=== PATIENT | female | born 1990 | race African-American/Black ===

== ENCOUNTER 2021-12-13 09:36 | Emergency (ER) | payer MEDICAID, OTHER ==
[~2021-12-13] VITALS: Ht 170.2 cm; Wt 137.9 kg
[2021-12-13 09:43] VITALS: BP 140/68
[2021-12-13 10:07] LABS: BILIRUBIN,URINE NEGATIVE (NEG); CLARITY,URINE CLEAR; COLOR,URINE YELLOW; NITRITE,URINE NEGATIVE (NEG); PROTEIN,URINE 30 mg/dL (NEG-TRACE); UROBILINOGEN,URINE 0.2 mg/dL (0.2 mg/dL)
--- NOTE | 2021-12-13 11:00 | PHYS DOC ---
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 She denies abdominal pain otherwise, nausea, vomiting, diarrhea, fever, back pain, blood in her urine, headache or dizziness. She states that she has no concerns for STDs and does not want to be treated today for them. Patient has a history of breast cancer with surgery and former smoker. ([facility] Review of Systems: Review of Systems: Constitutional: Denies fever or chills. [] Eyes: Denies change in visual acuity. [] HENT: Denies nasal congestion or sore throat. [] Respiratory: Denies cough or shortness of breath. [] Cardiovascular: Denies chest pain or edema. [] GI: +Pressure abdominal pain after urination, denies nausea, vomiting, bloody stools or diarrhea. [] : Denies dysuria. + Vaginal discharge [] Musculoskeletal: Denies back pain or joint pain. [] Integument: Denies rash. [] Neurologic: Denies headache, focal weakness or sensory changes. [] Endocrine: Denies polyuria or polydipsia. [] Lymphatic: Denies swollen glands. [] Psychiatric: Denies depression or anxiety. [] ([facility],WALTER M ANGIOGRAPHY TECHNOLOGIST) Heart Score: C/O Chest Pain: No ([facility] ANGIOGRAPHY TECHNOLOGIST) Allergies: Allergies: Allergies Coded Allergies Type Severity Reaction Last Updated Verified No Known Drug Allergies 04/28/14 No ([facility] ANGIOGRAPHY TECHNOLOGIST) Physical Exam: PE: Constitutional: Well developed, well nourished, no acute distress, non-toxic appearance. [] HENT: Normocephalic, atraumatic, bilateral external ears normal, oropharynx moist, no oral exudates, nose normal. [] Eyes: PERRLA, EOMI, conjunctiva normal, no discharge. [] Neck: Normal range of motion, no tenderness, supple, no stridor. [] Cardiovascular:Heart rate regular rhythm, no murmur [] Lungs & Thorax: Bilateral breath sounds clear to auscultation [] Abdomen: Bowel sounds normal, soft, no tenderness, no masses, no pulsatile masses. [] Skin: Warm, dry, no erythema, no rash. [] Back: No tenderness, no CVA tenderness. [] Extremities: No tenderness, no cyanosis, no clubbing, ROM intact, no edema. [] Neurologic: Alert and oriented X 3, normal motor function, normal sensory function, no focal deficits noted. [] Psychologic: Affect normal, judgement normal, mood normal. [] Normal physical exam (WALTER VELAZQUEZ APRN) Current Patient Data: Labs: Laboratory Tests Test 12/13/21 09:55 POC Urine HCG, Qualitative Hcg negative (Negative) Microbiology 12/13/21 Wet Prep - Final, Complete Vital Signs: Vital Signs Date Time Temp Pulse Resp B/P (MAP) Pulse Ox O2 Delivery O2 Flow Rate FiO2 12/13/21 09:43 98.0 106 22 140/68 (92) 98 Room Air 98.0 (WALTER VELAZQUEZ APRN) EKG: EKG: [] (WALTER VELAZQUEZ APRN) Radiology/Procedures: Radiology/Procedures: [] (WALTER VELAZQUEZ APRN) Course & Med Decision Making: Course & Med Decision Making Pertinent Labs and Imaging studies reviewed. (See chart for details) See HPI. Alert and oriented x4. Ambulatory steady gait. Skin pink warm and dry. Afebrile. No CVA tenderness. Abdomen soft and nontender. Wet prep positive for bacterial vaginosis. Chlamydia and gonorrhea sent off and patient is educated that she will be called in 48 hours only if something comes back positive. Patient states that she will wait and see and does not be treated today. Pelvic Exam: Corporate Travel Coordinator present Abdomen: Nontender External Genitalia: Normal Skin Speculum: Normal vaginal mucosa, white cervical discharge Bimanual: No adnexal masses or tenderness, No CMT [] (WALTER VELAZQUEZ APRN) Course & Med Decision Making I have reviewed the PA/[employer]ST[employer]'s note and plan of care. I was available for consultation as needed during the patient's visit in the emergency department. (ZHANNA PINZON MD) Laura Disclaimer: Laura Disclaimer: This electronic medical record was generated, in whole or in part, using a voice recognition dictation system. (WALTER VELAZQUEZ APRN) Departure Departure Impression: Primary Impression: Bacterial vaginosis Additional Impression: Dysuria Disposition: HOME / SELF CARE / HOMELESS Condition: STABLE Referrals: UNKNOWN PCP NAME (PCP) CHELSEA IRWIN MD Patient Instructions: Bacterial Vaginosis, Dysuria Additional Instructions: Follow-up with your primary care provider or a solid propellant processor. I have referred yo u to a solid propellant processor if you do not have one. Take medication as prescribed and with food. If you have any further concerns or symptoms worsen return emergency room. Scripts Cephalexin (KEFLEX) 500 Mg Capsule 1 CAP PO TID for 7 Days, #21 CAP Prov: WALTER VELAZQUEZ APRN 12/13/21 Metronidazole (METRONIDAZOLE) 500 Mg Tablet 1 TAB PO BID for 7 Days, #14 TAB 0 Refills Prov: WALTER VELAZQUEZ APRN 12/13/21 WALTER VELAZQUEZ APRN Dec 13, 2021 11:00 ZHANNA PINZON MD Dec 13, 2021 12:20
[2021-12-13 11:18] LABS: BACTERIA,URINE FEW /HPF (0-FEW); RBC,URINE 0 /HPF (0-2); WBC,URINE OCC /HPF (0-4)
[2021-12-13] MEDS ORDERED: CEPH500C PO (11:18)
[2021-12-13] MEDS ORDERED: METR-34 PO (11:18)
[2021-12-15 20:08] LABS: GC PROBE Negative (Negative)
== END 2021-12-13 11:24 | disposition home or self-care (01) ==
LOC: ER 09:36
DX: N76.0 Acute vaginitis (principal); B96.89 Other specified bacterial agents as the cause of diseases classified elsewhere; R30.0 Dysuria; Z87.891 Personal history of nicotine dependence
CPT/HCPCS: 81001; 81025; 87491; 87591; 99284; Q0111